=== PATIENT | female | born 1970 | race Two or more races ===

== ENCOUNTER 2020-02-10 17:09 | Emergency (ER) | payer OTHER ==
[~2020-02-10] VITALS: Ht 167.6 cm; Wt 55.8 kg
== END 2020-02-10 18:55 | disposition home or self-care (01) ==
LOC: ER 17:09
DX: J06.9 Acute upper respiratory infection, unspecified (principal); B96.0 Mycoplasma pneumoniae [M. pneumoniae] as the cause of diseases classified elsewhere